=== PATIENT | male | born 1970 | race Caucasian/White ===

== ENCOUNTER 2019-10-03 05:45 | Emergency (ER) | payer OTHER, SELFPAY ==
[2019-10-03 05:48] VITALS: BP 142/83; PULSE 86; RESP 19; TEMP 37.3; O2SAT 100
--- NOTE | 2019-10-03 05:51 | ED.EYEPROB ---
HPI - Eye Problem General Chief complaint: Eye Problems Stated complaint: metal in eye Time Seen by Provider: 10/03/19 05:49 Source: patient Mode of arrival: ambulatory Limitations: no limitations History of Present Illness HPI Narrative: Patient is a 49-year-old male who presents for evaluation of right eye irritation. Patient states he was working with metal, cutting metal yesterday, had no protective lens around, when he felt a piece of metal come into his eye. Patient reports irritation, redness on the eye. No visual changes. No headache. Patient has tried irrigation other medications to try to remove what he thinks is a foreign body and has been unsuccessful, thus he sought care in our emergency department. Patient is not up-to-date on his tetanus. He does not wear contact lenses or corrective lenses. Related Data Allergies Allergy/AdvReac Type Severity Reaction Status Date / Time Penicillins Allergy Unknown Verified 10/03/19 05:51 Review of Systems Review of Systems: Narrative: CONSTITUTIONAL: Denies fever CARDIOVASCULAR: Denies chest pain RESPIRATORY: Denies cough or dyspnea. GASTROINTESTINAL: Denies abdominal pain SKIN: Denies rash MUSCULOSKELETAL: Denies back pain NEUROLOGIC: Denies headache [facility] Past Medical History Medical History (Updated 10/03/19 @ 06:07 by Maribeth Barclay MD) No pertinent past medical history Surgical History Surgical History (Updated 10/03/19 @ 06:05 by Maribeth Barclay MD) History of repair of congenital cleft palate Social History Social History (Updated 10/03/19 @ 06:06 by Maribeth Barclay MD) Substance use: never Living arrangements: with family Gender identity (if verbalized by the patient): Male Exam Narrative: Exam Narrative: GENERAL: Awake, alert, conversant HEAD: Normocephalic, atraumatic. EYES: 2+ PERRLA, patient with right eyelid edema, tearing, no discharge. Right conjunctival injection. 20/30 OD, 20/25 OU, 20/20 OS. Foreign body present at 6 o'clock position to the pupil. Rust ring present. ENT: Nares clear, no rhinorrhea or epistaxis. Mucous membranes moist. NECK: Supple. CHEST: No respiratory distress, breathing even and non labored HEART: Regular rate, sinus rhythm ABDOMEN:Non distended, non tender EXTREMITIES: Normal range of motion. No edema. SKIN: Warm, dry, no rash. NEURO:No focal deficits. Alert and oriented x3 Course Vital Signs Vital signs: Vital Signs Temperature 37.3 C 10/03/19 05:48 Pulse Rate 86 10/03/19 05:48 Respiratory Rate 19 10/03/19 05:48 Blood Pressure 142/83 H 10/03/19 05:48 Pulse Oximetry 100 10/03/19 05:48 Temperature 37.3 C 10/03/19 05:48 Pulse Rate 86 10/03/19 05:48 Respiratory Rate 19 10/03/19 05:48 Blood Pressure 142/83 H 10/03/19 05:48 Pulse Oximetry 100 10/03/19 05:48 MDM - Eye Problem MDM Narrative Medical decision making narrative: Patient presented to the emergency department for foreign body in right eye and eye irritation. At the time of initial assessment ABCs are intact and vital signs are stable. Patient has dry eye conjunctival injection, evidence of foreign body present. Tetracaine and fluorescein applied into the right eye, no Mary sign, small abrasion present.Tetanus updated. I do not feel the patient has any signs or symptoms of a ruptured globe at this point. Patient with intact visual acuity, no eye pain. Was able to partially remove some of the foreign body and rust ring, but the rest of it does appear to be somewhat embedded into the cornea. Patient was given follow-up with [facility] ophthalmology eye clinic this morning at 9:30 AM, given an eye patch and provided with ofloxacin eyedrops prior to discharge. Differential Diagnosis Differential diagnosis: Likely corneal abrasion, corneal ulcer and ruptured globe Discharge Plan Discharge Clinical Impression: Corneal abrasion Qualifiers: Encounter type: initial encounter Laterality: ri
[2019-10-03] MEDS: TETANUS,DIPHTHERIA,AC PERTUSSIS ADULT (0.5 ML) BOOSTRIX IM (06:13)
[2019-10-03] MEDS: OFLOXACIN 0.3% OP SOLN 5 ML BTL 1 DROP EACH EYE (06:35)
== END 2019-10-03 06:35 | disposition home or self-care (01) ==
LOC: ANHED 06:17
PROVIDERS: Emergency Provider Emergency Medicine
DX: T15.01XA Foreign body in cornea, right eye, initial encounter (principal); Z23 Encounter for immunization; W20.8XXA Other cause of strike by thrown, projected or falling object, initial encounter
CPT/HCPCS: 65220; 65222; 90471; 90715; 99283; A9270